=== PATIENT | male | born 1990 | race Caucasian/White ===

== ENCOUNTER 2016-07-01 09:57 | Emergency (ER) | payer OTHER ==
[~2016-07-01 09:57] MED LIST: CYCL10TA9 PO; NAPR500T PO
[2016-07-01 10:06] VITALS: BP 135/89; PULSE 83; RESP 16; O2SAT 95
--- NOTE | 2016-07-01 10:17 | ED.REPORT ---
HPI-Trauma Minor / Fall Date of Service Jul 01, 2016 ED Provider: Chris Perea DO A morbidly obese 26 year old male presents to the ER accompanied by a female journal clerk complaining of low back pain status post ground level fall this morning. He states that he slipped and fell landing on his buttocks while was walking down a wet wooden ramp outside of his aunts house. At the time of injury he felt "a huge shock of pain" radiate up his spine. Patient denies any other injuries secondary to the fall. Nursing Notes Stated Complaint: GLF Chief Complaint: Back Pain or Injury Nursing Notes Reviewed: Yes Allergies: Coded Allergies: No Known Allergies (Unverified , 03/15/16) Scheduled PRN Cyclobenzaprine (Cyclobenzaprine) 10 Mg Tablet 10 MG PO BID PRN PRN Spasm Ibuprofen (Ibuprofen) 800 Mg Tablet 800 MG PO TID PRN PRN For Pain Naproxen (Naprosyn) 500 Mg Tablet 500 MG PO BID PRN PRN For Pain General Time Seen by MD: 10:17 Chief Complaint Fall, Other (Back Pain) Hx Obtained From: Patient Arrived By: Walk-in Onset Occurred: 1 - 4 hours ago Symptom Duration: Since onset Caused by: Accidental, Fall on ground Context: Occurred at: Home injury Location: Back Quality: Painful Severity: Current: Moderate Severity: Maximum: Moderate Past Medical History Past Medical History Autism per his report Reports: Depression, Obesity Past Surgical History L hand surg as youngster. Bilat ankle surgeries. Reports: Tonsillectomy Smoking History Never Smoker Social History Alcohol Use: Denies alcohol use Drug Use: Denies drug use Occupation lives with partner, no work or school 05/30/2016 Ambulatory Status Independent Review of Systems Musculoskeletal: Reports: Back pain, Lumbar pain, Denies: Extremity pain, Joint pain, Neck pain, Thoracic pain Neurologic: Denies: Headache, Syncope Complete sys rev & neg: except as marked. Physical Exam Initial Vital Signs Vital Signs (First) Date Time Temp Pulse Resp B/P Pulse Ox O2 Delivery O2 Flow Rate FiO2 07/01/16 10:06 36.4 83 16 135/89 95 Room Air Initial VS: Reviewed Head / Eyes: Atraumatic, Normocephalic Skin: Warm, Dry, No cyanosis Neurologic: Alert, Oriented, Nonfocal General/Constitutional: Awake, Alert, Well developed, Well nourished Appearance / Presentation: Positive: Obese, morbidly Neck: Atraumatic, Supple, Full range of motion, No swelling, Non-tender, No midline vertebral tend Back: Atraumatic, Inspection NL, Full range of motion, Painless range of motion , Non-tender, No midline vertebral tend No palpable or reproducible pain. Upper Extremity / MS: Atraumatic, Inspection NL, Full range of motion, No swelling, Non-tender, No erythema, No deformity, Neurologic intact, Vascular intact Lower Extremity / Pelvis / MS: Inspection NL, No swelling, Non-tender, No erythema, No deformity, Neurologic intact, Vascular intact, No edema Re-Eval/Medical Decision Med Decision/Clinical Course No obvious identifiable life-threatening injuries can be identified. Patient was discharged on ibuprofen and Tylenol. Return precautions given. Re-Evaluation/Progress : Time of Eval: 11:23 Re-Evaluation/Progress Note: Patient reports that deep breaths exacerbate pain. Discussed plan to discharge. Verbal discharge instructions given. Patient is amenable to the plan. Return precautions given. All other questions addressed. Counseled Regarding: Diagnosis, Need for follow-up, When/why to return to ED Discharge & Departure Impression: Primary Impression: Back contusion Disposition: Home Discharge Condition All VS Reviewed: Yes Condition: Stable Additional Instructions: Use Tylenol and ibuprofen for pain. Follow-up with your primary care doctor as needed for worsening symptoms. Return to the ER for any life-threatening emergency. Referrals: OTHER,PHYSICIAN (PCP) Scribe Attestation Portions of this note were transcribed by Mariam Montilla. I, Dr. Perea, personally performed the history, physical exam and medical decision-making; I reviewed and confirmed the accuracy of the information in the transcribed note. Signed by: Isis Storey, 07/01/2016 and 11:25 Chris Perea DO Jul 01, 2016 10:17 MARIAM MONTILLA Jul 01, 2016 10:34
[2016-07-01] MEDS ORDERED: IBUP800T28 PO (10:49)
== END 2016-07-01 11:25 | disposition home or self-care (01) ==
LOC: SED 10:45
DX: S30.0XXA Contusion of lower back and pelvis, initial encounter (principal); E66.01 Morbid (severe) obesity due to excess calories; W01.0XXA Fall on same level from slipping, tripping and stumbling without subsequent striking against object, initial encounter; Y93.01 Activity, walking, marching and hiking; Y99.8 Other external cause status; Y92.018 Other place in single-family (private) house as the place of occurrence of the external cause

== ENCOUNTER 2016-09-19 16:01 | Emergency (ER) | payer OTHER ==
[~2016-09-19] VITALS: Ht 188 cm; Wt 255.4 kg
[~2016-09-19 16:01] MED LIST changes: +IBUP800T28 PO
[2016-09-19 16:03] VITALS: BP 133/75; PULSE 91; RESP 20; O2SAT 96
--- NOTE | 2016-09-19 16:28 | ED.REPORT ---
HPI-Back Pain Under 40 Date of Service Sep 19, 2016 ED Provider: Griffin Stout MD The patient is a 26 year old obese male who presents to the emergency department complaining of back pain that began 2 weeks ago. His pain is located to his sciatic region and radiates down the back of his left leg. His pain has been worsening since onset and he has also noticed muscle spasms. He is still able to ambulate. He has had similar symptoms in the past but never this severe. His pain has previously been improved with muscle relaxers. He is concerned he may also have a UTI due to recent increased urinary frequency/ urgency and some mild discomfort with urination. He denies bladder incontinence , bowel incontinence, numbness or weakness. Nursing Notes Stated Complaint: AGONIZING BACK PAIN Chief Complaint: Back Pain or Injury Nursing Notes Reviewed: Yes Allergies: Coded Allergies: No Known Allergies (Unverified , 03/15/16) Scheduled PRN Cyclobenzaprine (Cyclobenzaprine) 10 Mg Tablet 10 MG PO BID PRN PRN Spasm Cyclobenzaprine (Cyclobenzaprine) 5 Mg Tablet 10 MG PO HS PRN PRN Spasm Ibuprofen (Ibuprofen) 800 Mg Tablet 800 MG PO TID PRN PRN For Pain Ibuprofen (Ibuprofen) 600 Mg Tablet 600 MG PO QID PRN PRN For Pain Naproxen (Naprosyn) 500 Mg Tablet 500 MG PO BID PRN PRN For Pain General Time Seen by MD: 16:13 Chief Complaint Back pain Hx Obtained From: Patient Arrived By: Walk-in Sudden in Onset?: Yes Onset Occurred: More than a week ago... (2 weeks) Symptom Duration: Since onset Caused by: Lifting Location: : Perispinal lumbar: Perispinal sacral Quality: Itching Radiation: : Left leg above knee Severity: Current: Moderate Severity: Maximum: Severe Recent Healthcare: No recent doctor visit, No recent hospitalization Similar Sx Previous: No Past Medical History Past Medical History Autism per his report Reports: Depression, Obesity Past Surgical History L hand surgergy Bilat ankle surgeries Reports: Tonsillectomy Family History Noncontributory Smoking History Never Smoker Social History Alcohol Use: Denies alcohol use Drug Use: Denies drug use Other Social History: Good social support, , Local resident Occupation lives with partner, no work or school 05/30/2016 Ambulatory Status Independent Review of Systems Male: Reports Dysuria, Reports Urinary frequency, Reports Urinary urgency, Reports Urination increased, Denies Incontinence Musculoskeletal: Reports: Back pain, Lumbar pain Neurologic: Denies: Bladder dysfunction, Bowel dysfunction, Focal weakness, Numbness, Problem walking Complete sys rev & neg: except as marked. Physical Exam Initial Vital Signs Vital Signs (First) Date Time Temp Pulse Resp B/P Pulse Ox O2 Delivery O2 Flow Rate FiO2 09/19/16 16:03 36.2 91 20 133/75 96 Room Air Initial VS: Reviewed Head / Eyes: Atraumatic, Normocephalic, PERRL ENT: Mucous membranes moist, Conjunctiva normal, No scleral icterus Neck: Supple, Non-tender, Full range of motion Respiratory: Breath sounds normal, Clear to auscultation, No respiratory distress Cardiovascular: Heart sounds normal, Intact distal pulses Abdomen / GI: Soft, Non-tender, No guarding, No rebound, No distention Extremities: Vascular intact, Neuro intact, No swelling, No tenderness Skin: Warm, Dry, No cyanosis Psychiatric: Mood/affect normal, Behavior normal, Normal thought content General/Constitutional: Awake, Alert, Cooperative Appearance / Presentation: Positive: Obese, morbidly Back: Atraumatic, Inspection NL, Full range of motion, Painless range of motion , Non-tender, No midline vertebral tend, No paraspinal tenderness, Straight leg raise neg Neurologic: Oriented X3, Speech NL, No motor deficits, No sensory deficits Interpretation & Diagnostics Interpretation & Diagnostics: Urine dip: negative Re-Eval/Medical Decision Med Decision/Clinical Course 26-year-old morbid obesity history of sciatica presenting of aggravation of his sciatica. He has no red flag symptoms. Patient requests to be checked for UTI. His urine is negative for infection. Patient declined Toradol. Was given ibuprofen. Given prescription for muscle relaxers given muscle spasms. He had no midline tenderness. Discharged home with return precautions. Source of Hx: Old records Re-Evaluation/Progress : Time of Eval: 16:48 Re-Evaluation/Progress Note: Discussed plan for urine dip and discharge. All questions were addressed. Counseled Regarding: Diagnosis, Need for follow-up, When/why to return to ED Discharge & Departure Impression: Primary Impression: Low back pain Chronicity: acute Back pain laterality: bilateral Sciatica presence: with sciatica Sciatica laterality: sciatica of left side Qualified Code: M54.42 - Lumbago with sciatica, left side Disposition: Home All VS Reviewed: Yes Condition: Stable Patient Instructions: Acute Low Back Pain (ED) Additional Instructions: Thank you for entrusting us with your care today. Your urine dip is not concerning for a urinary tract infection. Take the ibuprofen and Flexeril as prescribed. Followup with your regular doctor if your symptoms are not improving in 1 week. Seek care sooner if you develop increased pain, numbness, weakness, bladder or bowel incontinence, problem walking, or any other new or concerning symptoms. Referrals: OTHER,PHYSICIAN (PCP) Scribe Attestation Portions of this note were transcribed by Josee Tapia. I, Dr. Stout personally performed the history, physical exam and medical decision-making; I reviewed and confirmed the accuracy of the information in the transcribed note. Signed by: Isis Shearer, 09/19/2016 at 1715. Griffin Stout MD Sep 19, 2016 16:28 Josee Tapia Sep 19, 2016 16:41
[2016-09-19] MEDS ORDERED: IBUP-1827 PO (16:55)
[2016-09-19] MEDS ORDERED: CYCL5TAB PO (16:55)
[2016-09-19 17:28] VITALS: BP 133/75; PULSE 91; RESP 20; O2SAT 96
== END 2016-09-19 17:30 | disposition home or self-care (01) ==
LOC: SED 16:01
DX: M54.42 Lumbago with sciatica, left side (principal)

== ENCOUNTER 2016-12-01 10:34 | Emergency (ER) | payer OTHER ==
[~2016-12-01] VITALS: Ht 188 cm; Wt 263.6 kg
[~2016-12-01 10:34] MED LIST changes: +CYCL5TAB PO; +IBUP-1827 PO
[2016-12-01 10:35] VITALS: BP 123/79; PULSE 87; RESP 20; O2SAT 94
--- NOTE | 2016-12-01 10:42 | ED.REPORT ---
HPI-Back Pain Under 40 Date of Service Dec 01, 2016 ED Provider: Chris Wells DO Patient is a 26 year old male with a history of chronic low back pain with sciatica who presents to the ED complaining of an acute exacerbation of low back pain. Associated symptoms include radiating bilateral hip pain. He denies bowel dysfunction, incontinence, numbness, weakness or trouble walking. Patient reports that he took an increased dose of Cyclobenzaprine at home along with Tylenol, which he thinks is helping with the pain. 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 Nursing Notes Stated Complaint: BACK PAIN Chief Complaint: Back Pain or Injury Nursing Notes Reviewed: Yes Allergies: Coded Allergies: No Known Allergies (Unverified , 12/01/16) Scheduled Cholecalciferol (Vitamin D3) (Vitamin D3) 50,000 Unit Capsule 50,000 UNIT PO WEEKLY Venlafaxine ER (Venlafaxine ER) 75 Mg Cap.er.24h 75 MG PO DAILY Scheduled PRN Cyclobenzaprine (Cyclobenzaprine) 10 Mg Tablet 10 MG PO TID PRN PRN Spasm Cyclobenzaprine (Cyclobenzaprine) 10 Mg Tablet 10 MG PO TID PRN PRN Spasm Ibuprofen (Ibuprofen) 800 Mg Tablet 800 MG PO TID PRN PRN For Pain Ibuprofen (Ibuprofen) 800 Mg Tablet 800 MG PO TID PRN PRN For Pain General Time Seen by MD: 10:42 Chief Complaint Lumbar pain Hx Obtained From: Patient Arrived By: Walk-in Sudden in Onset?: No Onset Occurred: More than a week ago... (>6 months) Location: : Spinal lumbar area Quality: Painful Radiation: : Left leg above knee: Right leg above knee Severity: Current: Moderate Recent Healthcare: No recent hospitalization Similar Sx Previous: Yes Past Medical History Past Medical History Autism per his report chronic low back pain Reports: Depression, Obesity Past Surgical History L hand surgergy Bilat ankle surgeries Reports: Tonsillectomy Family History Noncontributory Smoking History Never Smoker Social History Alcohol Use: Denies alcohol use Drug Use: Denies drug use Other Social History: Good social support, , Local resident Occupation lives with partner, no work or school 05/30/2016 Ambulatory Status Independent Review of Systems Constitutional: Denies: Fever Respiratory: Denies: Non-productive cough, Shortness of breath Musculoskeletal: Reports: Back pain Neurologic: Denies: Bladder dysfunction, Bowel dysfunction, Numbness, Problem walking, Weakness Complete sys rev & neg: except as marked. Physical Exam Initial Vital Signs Vital Signs (First) Date Time Temp Pulse Resp B/P Pulse Ox O2 Delivery O2 Flow Rate FiO2 12/01/16 10:35 36.2 87 20 123/79 94 Room Air Initial VS: Reviewed General/Constitutional: Awake, Alert Distress / Hydration: Positive: Distress mild Appearance / Presentation: Positive: Obese, morbidly Back: Atraumatic, Straight leg raise neg lumbar tender with palpation Neurologic: Oriented X3, Speech NL, No motor deficits, No sensory deficits, CN II - XII intact Respiratory / Chest: Atraumatic, No respiratory distress Head / Eyes: Atraumatic, Normocephalic, PERRL, EOMI Skin: Atraumatic, Color NL, No rash, Warm, Dry Psychiatric: Affect NL, Mood NL Re-Eval/Medical Decision Med Decision/Clinical Course 26-year-old super morbidly obese male with acute on chronic back pain. No particular high risk features. Improved with Toradol. Ibuprofen and take olanzapine prescribed. Return and follow-up precautions given. Source of Hx: Old records Summary of Info: LUMBAR SPINE XRAY FROM 01/27/2016 IMPRESSION: Mild lower lumbar disc degeneration and facet arthropathy as above Dictated by: Silvio Buck M.D. on 01/27/2016 at 15:22 Approved by: Silvio Buck M.D. on 01/27/2016 at 15:22 Re-Evaluation/Progress : Time of Eval: 11:12 Re-Evaluation/Progress Note: Discussed plan for discharge. Patient understands and agrees to plan. All questions were addressed. Counseled Regarding: Diagnosis, Lab results, Need for follow-up, When/why to return to ED Discharge & Departure Impression: Primary Impression: Low back pain Chronicity: chronic Back pain laterality: midline Sciatica presence: with sciatica Sciatica laterality: bilateral sciatica Qualified Code: M54.41 - Lumbago with sciatica, right side Disposition: Home All VS Reviewed: Yes Condition: Stable Patient Instructions: Low Back Strain (ED) Additional Instructions: Take cyclobenzaprine and ibuprofen as needed for back discomfort, it is important that you do not overexert yourself however you should be up and walking. Contact your primary care doctor for further evaluation. Return to the ER if you develop loss of control of your bowels or bladder, numbness or paralysis of your lower extremities, a high fever associated with back pain, or other concerns. Referrals: Crystal Carmen MD Attestation Portions of this note were transcribed by Kelsie Shepherd. I, Dr. Lex Mariee personally performed the history, physical exam and medical decision-making; I reviewed and confirmed the accuracy of the information in the transcribed note. Signed by: Isis Pelaez, 12/01/16 and 1110. copies to: Crystal Carmen MD, Timothy S DO Dec 01, 2016 10:42 Chantel Shepherd Dec 01, 2016 10:53
[2016-12-01] MEDS ORDERED: IBUP800T28 PO ×2 (10:44→11:05)
[2016-12-01] MEDS ORDERED: CHOL500050 PO (10:44)
[2016-12-01] MEDS ORDERED: VENL75CA95 PO (10:44)
[2016-12-01] MEDS ORDERED: CYCL10TA9 PO ×2 (10:44→11:05)
== END 2016-12-01 11:23 | disposition home or self-care (01) ==
LOC: SED 10:34
DX: M54.41 Lumbago with sciatica, right side (principal); M54.42 Lumbago with sciatica, left side; G89.29 Other chronic pain; F32.9 Major depressive disorder, single episode, unspecified; Z87.828 Personal history of other (healed) physical injury and trauma
CPT/HCPCS: 96372; 99283; J1885